=== PATIENT | male | born 1980 | race Caucasian/White ===

== ENCOUNTER 2020-12-07 11:46 | Emergency (ER) | payer BC ==
[2020-12-07 12:19] VITALS: RESP 18
--- NOTE | 2020-12-07 12:55 | ED ---
General Adult HPI - General Chief complaint: Recheck/Abnormal Lab/Rx Stated complaint: Abnormal labs Time Seen by Provider: 12/07/20 12:30 Source: patient, family, RN notes reviewed Mode of arrival: ambulatory Limitations: no limitations - History of Present Illness Initial comments: Patient is a pleasant 40-year-old male presenting to the emergency department for abnormal labs. Patient does have history of high cholesterol. Patient was having his labs rechecked yesterday. Patient was told his hemoglobin level was high and to come to the emergency department. Patient has been having some mild palpitations however does have history of anxiety. Patient did recently have his medical level increased. Otherwise patient is symptom-free. No history of similar symptoms previously. Patient states he does have annual physicals and blood draws without history of similar problem reported to him. - Related Data Home Medications Medication Instructions Recorded Confirmed Cyclobenzaprine [Flexeril] 10 mg PO BID PRN 12/07/20 12/07/20 Diclofenac Sodium Gel [Voltaren 2 gm TOPICAL QID PRN 12/07/20 12/07/20 Gel] Doxycycline Hyclate 100 mg PO BID 12/07/20 12/07/20 Fenofibrate 54 mg PO DAILY 12/07/20 12/07/20 buPROPion HCL [Wellbutrin XL] 300 mg PO DAILY 12/07/20 12/07/20 buPROPion XL [Wellbutrin XL] 150 mg PO DAILY 12/07/20 12/07/20 lamoTRIgine [LaMICtal] 100 mg PO BID 12/07/20 12/07/20 Allergies Allergy/AdvReac Type Severity Reaction Status Date / Time ampicillin Allergy Unknown Verified 12/07/20 14:03 Review of Systems ROS Statement: Those systems with pertinent positive or pertinent negative responses have been documented in the HPI. ROS Other: All systems not noted in ROS Statement are negative. Constitutional: Denies: fever Eyes: Denies: eye pain ENT: Denies: ear pain Respiratory: Denies: cough Cardiovascular: Reports: palpitations. Denies: chest pain Endocrine: Denies: fatigue Gastrointestinal: Denies: abdominal pain Genitourinary: Denies: dysuria Musculoskeletal: Denies: back pain Skin: Denies: rash Neurological: Denies: weakness Past Medical History Past Medical History: Hyperlipidemia History of Any Multi-Drug Resistant Organisms: None Reported Past Surgical History: Orthopedic Surgery Additional Past Surgical History / Comment(s): bilateral shoulder surgery Past Psychological History: Anxiety, Bipolar, Depression, Panic Disorder Smoking Status: Never smoker Past Alcohol Use History: Occasional Past Drug Use History: None Reported General Exam Limitations: no limitations General appearance: alert, in no apparent distress Head exam: Present: normocephalic Eye exam: Present: normal appearance Neck exam: Present: normal inspection Respiratory exam: Present: normal lung sounds bilaterally Cardiovascular Exam: Present: regular rate, normal rhythm, normal heart sounds GI/Abdominal exam: Present: soft. Absent: tenderness Extremities exam: Present: normal inspection. Absent: pedal edema, calf tenderness Neurological exam: Present: alert Psychiatric exam: Present: normal affect, normal mood Skin exam: Present: normal color. Absent: rash Course Vital Signs 12/07/20 12:12 Temperature 98.6 F Pulse Rate 107 H Respiratory 18 Rate Blood Pressure 154/104 O2 Sat by Pulse 98 Oximetry EKG Findings - EKG Comments: EKG Findings:: No sinus rhythm with a rate of 89. OH 142. QRS 98. QT 366. QTc 445. Normal axis. Normal QRS. No acute ST change. Medical Decision Making - Medical Decision Making Patient reevaluated and resting comfortably in bed, remains symptom-free. Patient and family updated on results and need for follow-up. Lab abnormality concern that brought patient to the hospital is not found - Lab Data Result diagrams: 12/07/20 13:26 12/07/20 13:26 Lab Results 12/07/20 12/07/20 12/07/20 Range/Units 13:26 13:26 13:26 WBC 6.1 (3.8-10.6) k/uL RBC 4.54 (4.30-5.90) m/uL Hgb 14.8 (13.0-17.5) gm/dL Hct 39.6 (39.0-53.0) % MCV 87.3 (80.0-100.0) fL MCH 32.7 (25.0-35.0) pg MCHC 37.4 H (31.0-37.0) g/dL RDW 12.2 (11.5-15.5) % Plt Count 221 (150-450) k/uL MPV 6.3 Neutrophils % 83 % Lymphocytes % 10 % Monocytes % 4 % Eosinophils % 1 % Basophils % 0 % Neutrophils # 5.1 (1.3-7.7) k/uL Lymphocytes # 0.6 L (1.0-4.8) k/uL Monocytes # 0.3 (0-1.0) k/uL Eosinophils # 0.1 (0-0.7) k/uL Basophils # 0.0 (0-0.2) k/uL Hyperchromasia Moderate PT 10.7 (9.0-12.0) sec INR 1.0 (<1.2) APTT 24.7 (22.0-30.0) sec Sodium (137-145) mmol/L Potassium (3.5-5.1) mmol/L Chloride (98-107) mmol/L Carbon Dioxide (22-30) mmol/L Anion Gap mmol/L BUN (9-20) mg/dL Creatinine (0.66-1.25) mg/dL Est GFR (CKD-EPI)AfAm (>60 ml/min/1.73 sqM) Est GFR (CKD-EPI)NonAf (>60 ml/min/1.73 sqM) Glucose (74-99) mg/dL Plasma Lactic Acid John (0.7-2.0) mmol/L Calcium (8.4-10.2) mg/dL Magnesium (1.6-2.3) mg/dL Total Bilirubin (0.2-1.3) mg/dL AST (17-59) U/L ALT (4-49) U/L Alkaline Phosphatase (38-126) U/L Troponin I (0.000-0.034) ng/mL Total Protein (6.3-8.2) g/dL Albumin (3.5-5.0) g/dL TSH (0.465-4.680) mIU/L Free T4 (0.78-2.19) ng/dL Free T3 pg/mL (2.8-5.3) pg/ml Urine Color Yellow Urine Appearance Clear (Clear) Urine pH 6.0 (5.0-8.0) Ur Specific [facility] 1.027 (1.001-1.035) Urine Protein Negative (Negative) Urine Glucose (UA) Negative (Negative) Urine Ketones Negative (Negative) Urine Blood Negative (Negative) Urine Nitrite Negative (Negative) Urine Bilirubin Negative (Negative) Urine Urobilinogen 2.0 (<2.0) mg/dL Ur Leukocyte Esterase Negative (Negative) Valproic Acid ug/mL 12/07/20 12/07/20 12/07/20 Range/Units 13:26 13:26 13:26 WBC (3.8-10.6) k/uL RBC (4.30-5.90) m/uL Hgb (13.0-17.5) gm/dL Hct (39.0-53.0) % MCV (80.0-100.0) fL MCH (25.0-35.0) pg MCHC (31.0-37.0) g/dL RDW (11.5-15.5) % Plt Count (150-450) k/uL MPV Neutrophils % % Lymphocytes % % Monocytes % % Eosinophils % % Basophils % % Neutrophils # (1.3-7.7) k/uL Lymphocytes # (1.0-4.8) k/uL Monocytes # (0-1.0) k/uL Eosinophils # (0-0.7) k/uL Basophils # (0-0.2) k/uL Hyperchromasia PT (9.0-12.0) sec INR (<1.2) APTT (22.0-30.0) sec Sodium 136 L (137-145) mmol/L Potassium 4.1 (3.5-5.1) mmol/L Chloride 106 (98-107) mmol/L Carbon Dioxide 24 (22-30) mmol/L Anion Gap 6 mmol/L BUN 16 (9-20) mg/dL Creatinine 0.91 (0.66-1.25) mg/dL Est GFR (CKD-EPI)AfAm >90 (>60 ml/min/1.73 sqM) Est GFR (CKD-EPI)NonAf >90 (>60 ml/min/1.73 sqM) Glucose 132 H (74-99) mg/dL Plasma Lactic Acid John 0.8 (0.7-2.0) mmol/L Calcium 9.3 (8.4-10.2) mg/dL Magnesium 2.4 H (1.6-2.3) mg/dL Total Bilirubin 0.5 (0.2-1.3) mg/dL AST 25 (17-59) U/L ALT 28 (4-49) U/L Alkaline Phosphatase 72 (38-126) U/L Troponin I <0.012 (0.000-0.034) ng/mL Total Protein 6.7 (6.3-8.2) g/dL Albumin 4.3 (3.5-5.0) g/dL TSH 0.615 (0.465-4.680) mIU/L Free T4 0.97 (0.78-2.19) ng/dL Free T3 pg/mL 4.3 (2.8-5.3) pg/ml Urine Color Urine Appearance (Clear) Urine pH (5.0-8.0) Ur Specific [facility] (1.001-1.035) Urine Protein (Negative) Urine Glucose (UA) (Negative) Urine Ketones (Negative) Urine Blood (Negative) Urine Nitrite (Negative) Urine Bilirubin (Negative) Urine Urobilinogen (<2.0) mg/dL Ur Leukocyte Esterase (Negative) Valproic Acid <10.0 ug/mL - Radiology Data Radiology results: image reviewed (Chest x-ray shows no acute process) Disposition Clinical Impression: Palpitations Disposition: HOME SELF-CARE Condition: Stable Instructions (If sedation given, give patient instructions): Heart Palpitations (ED) Additional Instructions: Please do follow-up with your primary care physician in the next day or 2 for recheck. Have primary care physician consider rechecking labs again if they feel necessary. If heart palpitations/racing heart rate continues consider further evaluation with this including monitor cardiac evaluation. Return for increased heart rate, chest pain or difficulty breathing, worsening or changing symptoms or other concerns. Is patient prescribed a controlled substance at d/c from ED?: No Referrals: Brittani Thompson NPC [Family Provider] - 1-2 days Time of Disposition: 15:17
[2020-12-07 14:07] LABS: Appearance,Urine Clear (Clear); Bilirubin,Urine Negative (Negative); Blood,Urine Negative (Negative); Color,Urine Yellow; Glucose,Urine (UA) Negative (Negative); Ketones,Urine Negative (Negative); Leukocyte Esterase,Urine Negative (Negative); Nitrite,Urine Negative (Negative); Protein,Urine Negative (Negative); Specific Gravity,Urine 1.027 (1.001-1.035)
[2020-12-07 14:11] LABS: Basophils % (A) 0 %; Eosinophils # (A) 0.1 k/uL (0-0.7); Eosinophils % (A) 1 %; HCT 39.6 % (39.0-53.0); HGB 14.8 gm/dL (13.0-17.5); Hyperchromasia Moderate; Lymphocytes # (A) 0.6 k/uL (1.0-4.8); Lymphocytes % (A) 10 %; MCH 32.7 pg (25.0-35.0); MCHC 37.4 g/dL (31.0-37.0); MCV 87.3 fL (80.0-100.0); Mean Platelet Volume 6.3; Monocytes # (A) 0.3 k/uL (0-1.0); Monocytes % (A) 4 %; Neutrophils # (A) 5.1 k/uL (1.3-7.7); Neutrophils % (A) 83 %; Platelet Count 221 k/uL (150-450); RBC 4.54 m/uL (4.30-5.90); RDW 12.2 % (11.5-15.5); WBC 6.1 k/uL (3.8-10.6)
[2020-12-07 14:18] LABS: Partial Thromboplastin Time 24.7 sec (22.0-30.0); Prothrombin Time 10.7 sec (9.0-12.0)
[2020-12-07 14:21] LABS: ALT 28 U/L (4-49); AST 25 U/L (17-59); African American GFR (CKD) >90 (>60 ml/min/1.73 sqM); Albumin 4.3 g/dL (3.5-5.0); Alkaline Phosphatase 72 U/L (38-126); Anion Gap 6 mmol/L; Blood Urea Nitrogen 16 mg/dL (9-20); Calcium 9.3 mg/dL (8.4-10.2); Carbon Dioxide 24 mmol/L (22-30); Chloride 106 mmol/L (98-107); Glucose 132 mg/dL (74-99); Magnesium 2.4 mg/dL (1.6-2.3); Non-African American GFR(CKD) >90 (>60 ml/min/1.73 sqM); Potassium 4.1 mmol/L (3.5-5.1); Sodium 136 mmol/L (137-145); Total Bilirubin 0.5 mg/dL (0.2-1.3); Total Protein 6.7 g/dL (6.3-8.2)
[2020-12-07 14:26] LABS: Valproic Acid (Depakene) <10.0 ug/mL
[2020-12-07 14:37] LABS: T4, Free (Free Thyroxine) 0.97 ng/dL (0.78-2.19)
--- NOTE | 2020-12-07 14:38 | XR ---
EXAMINATION TYPE: XR chest 2V DATE OF EXAM: 12/07/2020 COMPARISON: None HISTORY: 40-year-old male with weakness TECHNIQUE: PA and lateral views FINDINGS: The cardiomediastinal silhouette, aorta, and pulmonary vasculature are within normal limits. Lungs an d pleural spaces are clear. IMPRESSION: No acute cardiopulmonary process.
[2020-12-07 15:48] VITALS: BP 140/82; PULSE 88; TEMP 98.4
== END 2020-12-07 15:35 | disposition home or self-care (01) ==
LOC: EC 11:46
DX: R00.2 Palpitations (principal); E78.5 Hyperlipidemia, unspecified; F41.9 Anxiety disorder, unspecified; F31.9 Bipolar disorder, unspecified; E78.00 Pure hypercholesterolemia, unspecified
CPT/HCPCS: 36415; 71046; 80053; 80164; 81003; 83605; 83735; 84439; 84443; 84481; 84484; 85025; 85610; 85730; 93005; 99285

== ENCOUNTER → 2022-07-15 | Outpatient (CLI) | payer BC ==
--- NOTE | 2022-07-15 17:30 | P.SLEEP ---
History of Present Illness H&P Date: 07/15/22 This is a 41-year-old male patient referred to me for sleep apnea evaluation. The patient employed by [employer] and he works at their central offices. He has been having issues with snoring and chronic hypersomnia and sleepiness. He has also excessive fatigue. His current Fortine score is currently at 2. He goes to bed around 1 PM and awakes at 9 AM in the morning. He is a mouth breather and he has been waking up with a dry mouth in the morning. He feels tired during the day. He is having some difficulties with concentration. No issues with memory. He has also gained weight in the order of 30 pounds over the past one year. The patient has other comorbid conditions including chronic anxiety and depression. The patient has hypertension and hyperlipidemia. He utilizes medical marijuana. No history of alcoholism. No history of substance abuse. He drinks over excess amount of beers over the weekend. His face on his side and he is a mouth breather. He is currently losing weight. The patient is undergoing medical treatment for weight loss. He is on a combination of Prozac and Abilify was chronic anxiety and depression. Review of Systems Constitutional: Reports fatigue, Reports weakness, Reports weight gain Eyes: denies as per HPI, denies blurred vision, denies bulging eye, denies decreased vision, denies diplopia, denies discharge, denies dry eye, denies irritation, denies itching, denies pain, denies photophobia, denies loss of peripheral vision, denies loss of vision, denies tunnel vision/blind spots Ears: deny: decreased hearing, ear discharge, earache, tinnitus Ears, nose, mouth and throat: Reports as per HPI Breasts: absent: as per HPI, gynecomastia Cardiovascular: Reports as per HPI Respiratory: Reports as per HPI Gastrointestinal: Reports as per HPI Genitourinary: Reports as per HPI Musculoskeletal: Reports as per HPI Musculoskeletal: absent: ankle pain, ankle stiffness, ankle swelling Neurological: Reports as per HPI Psychiatric: Reports as per HPI Endocrine: Reports as per HPI Hematologic/Lymphatic: Reports as per HPI Allergic/Immunologic: Reports as per HPI Past Medical History Past Medical History: Hyperlipidemia, Hypertension History of Any Multi-Drug Resistant Organisms: None Reported Past Surgical History: Orthopedic Surgery Additional Past Surgical History / Comment(s): bilateral shoulder surgery Past Psychological History: Anxiety, Bipolar, Depression, Panic Disorder Smoking Status: Never smoker Past Alcohol Use History: Occasional Past Drug Use History: None Reported Medications and Allergies Home Medications Medication Instructions Recorded Confirmed Type Cyclobenzaprine [Flexeril] 10 mg PO BID PRN 12/07/20 12/07/20 History Diclofenac Sodium Gel [Voltaren 2 gm TOPICAL QID PRN 12/07/20 12/07/20 History Gel] Doxycycline Hyclate 100 mg PO BID 12/07/20 12/07/20 History Fenofibrate 54 mg PO DAILY 12/07/20 12/07/20 History buPROPion HCL [Wellbutrin XL] 300 mg PO DAILY 12/07/20 12/07/20 History buPROPion XL [Wellbutrin XL] 150 mg PO DAILY 12/07/20 12/07/20 History lamoTRIgine [LaMICtal] 100 mg PO BID 12/07/20 12/07/20 History Allergies Allergy/AdvReac Type Severity Reaction Status Date / Time ampicillin Allergy Unknown Verified 12/07/20 14:03 Physical Exam BP is 150/92 with a pulse of 68 and the respiration of 12 and a temperature 98.4 with a saturation of 99% on room air oxygen. Weight is 217. Fortine score is at 2. The size of the neck is 17 inches. Body mass index is 32. The patient appeared well nourished and normally developed. Vital signs as documented. Head exam is unremarkable. No scleral icterus or corneal arcus noted. Neck is without jugular venous distension, thyromegaly, or carotid bruits. The patient is a Mallampati class IV with significant crowding of the posterior oropharynx. Carotid upstrokes are brisk bilaterally. Lungs are clear to auscultation and percussion. Cardiac exam reveals the PMI to be normally sized and situated. Rhythm is regular. First and second heart sounds normal. No murmurs, rubs or gallops. Abdominal exam reveals normal bowel sounds, no masses, no organomegaly and no aortic enlargement. Extremities are nonedematous and both femoral and pedal pulses are normal. Examination of the skin revealed no evidence of significant rashes, suspicious appearing nevi or other concerning le sions.Neurologically, the patient is awake and alert and the patient does not have any focal neurological deficit. Cranial nerves are essentially intact. Assessment and Plan Plan: Chronic fatigue and hypersomnia, consider possibility of obstructive sleep apnea. Snoring Obesity with a BMI of 32 Hypertension, Hyperlipidemia Chronic anxiety/depression Plan Proceed with screening polysomnography/home sleep study to evaluate this patient for obstructive sleep apnea. Weight loss Implement good sleep hygiene measures We'll continue to follow, and we'll make further recommendations based on the results of the sleep study. Sleep Note - Sleep Note Sleep Note: Temperature: Pulse Rate: Respiratory Rate: Blood Pressure: SpO2: Height: Weight: BMI: Neck Circumference:
== END ==
LOC: 3 N SLEEP 13:32
PROVIDERS: ATTEND Internal Medicine Critical Care Medicine
DX: G47.33 Obstructive sleep apnea (adult) (pediatric) (principal); I10 Essential (primary) hypertension; E78.5 Hyperlipidemia, unspecified; F41.9 Anxiety disorder, unspecified; E66.9 Obesity, unspecified; R53.82 Chronic fatigue, unspecified; R06.83 Snoring; F31.9 Bipolar disorder, unspecified; Z88.1 Allergy status to other antibiotic agents; Z68.32 Body mass index [BMI] 32.0-32.9, adult
CPT/HCPCS: 99211

== ENCOUNTER → 2022-12-09 | Outpatient (CLI) | payer BC ==
--- NOTE | 2022-12-09 14:00 | P.PN ---
Progress Note - Text Progress Note Date: 12/09/22 42-year-old male patient diagnosed having mild obstructive sleep apnea and the patient is coming in for a compliancy check. The patient underwent a sleep study and the patient was found to have mild TYLER with an AHI of 10. The patient has chronic hypersomnia and sleepiness. The patient accordingly was started on APAP therapy. The patient is currently working conditions. Is going to bed at around 10 PM and his waken up 7 AM in the morning. He is wearing his CPAP machine every night. Based on the compliance data collected on the machine, the patient has utilizes machine 80% of the time over the past 30 days and he has achieved more than 4 hours of usage 70% of the time. His been averaging about 5 hours and 50 minutes of CPAP use per night. He is currently on APAP mode pressures of 5/15 cm of water. Average pressure delivered by the machine or the P 95th percentile pressure is at 13.0. The patient has no Michele. leaks and the leak is in order of 10 L/m. AHI is down to 1.7. The patient is using the air fit F30 all facemask medium size. He is doing well. Strength lose weight. His current Talihina score is down to 8. His level of alertness is improved and the patient seems to be committed to long-term CPAP therapy. No complications or any side effects related to CPAP therapy. No headaches. No tiredness or sleepiness. Snoring is completely subsided BP is 131/66 with a pulse of 79 and a respiration of 16 and the weight is 226 pounds and the pulse ox is 98% on room air oxygen The patient appeared well nourished and normally developed. Vital signs as documented. Head exam is unremarkable. No scleral icterus or corneal arcus noted. Neck is without jugular venous distension, thyromegaly, or carotid bruits. Carotid upstrokes are brisk bilaterally. Lungs are clear to auscultation and percussion. Cardiac exam reveals the PMI to be normally sized and situated. Rhythm is regular. First and second heart sounds normal. No murmurs, rubs or gallops. Abdominal exam reveals normal bowel sounds, no masses, no organomegaly and no aortic enlargement. Extremities are nonedematous and both femoral and pedal pulses are normal.Examination of the skin revealed no evidence of significant rashes, suspicious appearing nevi or other concerning lesions.N eurologically, the patient is awake and alert and the patient does not have any focal neurological deficit. Cranial nerves are essentially intact. Assessment Symptomatic obstructive sleep apnea mild with an AHI of 10. The patient is currently undergoing successful APAP therapy with a pressures of 5/15 cm of water. Plan Continue weight loss Maintain good sleep hygiene measures Continue CPAP therapy the patient is compliant and the patient meets insurance standards for compliancy No need for any further adjustments keep the APAP mode Keep same mask interface Activate EPR and sedated level of 3, humidity level is at 4 and the temperature of the tube is at 65F. See me back in one year
== END ==
LOC: 3 N SLEEP 13:05
PROVIDERS: ATTEND Internal Medicine Critical Care Medicine
DX: G47.33 Obstructive sleep apnea (adult) (pediatric) (principal); Z99.89 Dependence on other enabling machines and devices; Z88.1 Allergy status to other antibiotic agents
CPT/HCPCS: 99212

== ENCOUNTER 2023-12-27 18:15 | Emergency (ER) | payer BC ==
[2023-12-27 18:26] VITALS: TEMP 98.7
[2023-12-27] MEDS: LIDOCAINE 1% INJ 10MG/ML (20 ML MDV) SQ ONE (18:59)
--- NOTE | 2023-12-27 19:02 | ED ---
General Adult HPI - General Chief complaint: Fall Stated complaint: Fall/passed out for 20secs Time Seen by Provider: 12/27/23 18:29 Source: patient, RN notes reviewed, old records reviewed Mode of arrival: ambulatory Limitations: no limitations - History of Present Illness Initial comments: 43-year-old male presenting status post trip and fall with head injury and loss of consciousness. Patient tripped on a child's toy falling face forward with lower lip laceration. He was unconscious after the fall. He complains of pain at the site of injury no other injuries reported. No anticoagulation. - Related Data Home Medications Medication Instructions Recorded Confirmed Cyclobenzaprine [Flexeril] 10 mg PO BID PRN 12/07/20 12/07/20 Diclofenac Sodium Gel [Voltaren 2 gm TOPICAL QID PRN 12/07/20 12/07/20 Gel] Doxycycline Hyclate 100 mg PO BID 12/07/20 12/07/20 Fenofibrate 54 mg PO DAILY 12/07/20 12/07/20 buPROPion HCL [Wellbutrin XL] 300 mg PO DAILY 12/07/20 12/07/20 buPROPion XL [Wellbutrin XL] 150 mg PO DAILY 12/07/20 12/07/20 lamoTRIgine [LaMICtal] 100 mg PO BID 12/07/20 12/07/20 Allergies Allergy/AdvReac Type Severity Reaction Status Date / Time ampicillin Allergy Unknown Verified 12/27/23 18:26 Review of Systems ROS Statement: Those systems with pertinent positive or pertinent negative responses have been documented in the HPI. ROS Other: All systems not noted in ROS Statement are negative. Past Medical History Past Medical History: Hyperlipidemia, Hypertension History of Any Multi-Drug Resistant Organisms: None Reported Past Surgical History: Orthopedic Surgery Additional Past Surgical History / Comment(s): bilateral shoulder surgery Past Psychological History: Anxiety, Bipolar, Depression, Panic Disorder Smoking Status: Never smoker Past Alcohol Use History: Occasional Past Drug Use History: None Reported General Exam Limitations: no limitations General appearance: alert, in no apparent distress Head exam: Present: other (Left periorbital ecchymosis, lower lip laceration x 2) ENT exam: Present: other (Two 1 cm lacerations on the lower lip) Neck exam: Present: normal inspection. Absent: tenderness, meningismus Respiratory exam: Present: normal lung sounds bilaterally. Absent: respiratory distress Cardiovascular Exam: Present: regular rate, normal rhythm GI/Abdominal exam: Present: soft. Absent: distended, tenderness, guarding Extremities exam: Present: normal inspection, normal capillary refill Neurological exam: Present: alert, oriented X3 Psychiatric exam: Present: normal affect, normal mood Skin exam: Present: warm Course Vital Signs 12/27/23 18:21 Temperature 98.7 F Pulse Rate 103 H Respiratory 20 Rate Blood Pressure 148/88 O2 Sat by Pulse 98 Oximetry Procedures - Laceration Laceration #1 Consent Obtained: verbal consent Indication: laceration Site: lip Size (cm): 3 Description: stellate, irregular Anesthetic Used: lidocaine 1% Anesthesia Technique: local infiltration Amount (mls): 3 Pre-repair: wound explored Type of Sutures: vicryl Size of Sutures: 5-0 Number of Sutures: 4 Technique: simple, interrupted Patient Tolerated Procedure: well Medical Decision Making - Medical Decision Making Was pt. sent in by a medical professional or institution (, PA, COMMERCIAL LINES MANAGER, urgent care, hospital, or fpc...) When possible be specific @ -No Did you speak to anyone other than the patient for history (EMS, parent, family, police, friend...)? What history was obtained from this source @ -No Did you review nursing and triage notes (agree or disagree)? Why? @ -I reviewed and agree with nursing and triage notes Were old charts reviewed (outside hosp., previous admission, EMS record, old EKG, old radiological studies, urgent care reports/EKG's, fpc records)? Report findings @ -No old charts were reviewed Differential Diagnosis medic injury from fall, lip laceration, dental injury, intracranial hemorrhage or goal injury EKG interpreted by me (3pts min.). @ -As above X-rays interpreted by me (1pt min.). @ -None done CT interpreted by me (1pt min.). @ -None done U/S interpreted by me (1pt. min.). @ -None done What testing was considered but not performed or refused? (CT, X-rays, U/S, labs)? Why? @ -None What meds were considered but not given or refused? Why? @ -None Did you discuss the management of the patient with other professionals (professionals i.e. , PA, COMMERCIAL LINES MANAGER, lab, RT, psych nurse, group social worker, certified breastfeeding educator, teacher, correctional officer, keycase assembler)? Give summary @ -No Was smoking cessation discussed for >3mins.? @ -No Was critical care preformed (if so, how long)? @ -No Were there social determinants of health that impacted care today? How? (Homelessness, low income, unemployed, alcoholism, drug addiction, transportation, low edu. Level, literacy, decrease access to med. care, skilled nursing, rehab)? @ -No Was there de-escalation of care discussed even if they declined (Discuss DNR or withdrawal of care, Hospice)? DNR status @ -No What co-morbidities impacted this encounter? (DM, HTN, Smoking, COPD, CAD, Cancer, CVA, ARF, Chemo, Hep., AIDS, mental health diagnosis, sleep apnea, morbid obesity)? @ -None Was patient admitted / discharged? Hospital course, mention meds given and route, prescriptions, significant lab abnormalities, going to OR and other pertinent info. @ -43-year-old male with mechanical fall, head injury, loss conscious. Head CT is negative. Patient had a stellate lip laceration which did not involve the vermilion border. This was repaired in the emergency department. Patient stable for discharge. Undiagnosed new problem with uncertain prognosis? @ -No Drug Therapy requiring intensive monitoring for toxicity (Heparin, Nitro, Insulin, Cardizem)? @ -No Were any procedures done? @ -Yes, laceration repair Diagnosis/symptom? @ -Concussion, lip laceration Acute, or Chronic, or Acute on Chronic? @ -Acute Uncomplicated (without systemic symptoms) or Complicated (systemic symptoms)? @ -Default Side effects of treatment? @ -No Exacerbation, Progression, or Severe Exacerbation? @ -No Poses a threat to life or bodily function? How? (Chest pain, [place], CA, pneumonia, PE, COPD, DKA, ARF, appy, cholecystitis, CVA, Diverticulitis, Homicidal, Suicidal, threat to staff... and all critical care pts) @ -No Disposition Clinical Impression: Fall, Concussion, Lip laceration Disposition: HOME SELF-CARE Condition: Good Instructions (If sedation given, give patient instructions): Concussion (ED), Laceration (ED), Care For Your Absorbable Stitches (ED) Is patient prescribed a controlled substance at d/c from ED?: No Referrals: Blayne Schrader DO [Primary Care Provider] - 1-2 days Time of Disposition: 19:34
--- NOTE | 2023-12-27 19:17 | CT ---
EXAMINATION TYPE: CT brain bobine wo con DATE OF EXAM: 12/27/2023 6:55 PM COMPARISON: None. CLINICAL INDICATION: Male, 43 years old with history of head injury +LOC/pain, Fall, +LOC TECHNIQUE: CT of the brain is performed utilizing 3 mm thick sections through the posterior fossa and 3 mm thick sections through the remaining calvarium. Study is performed within 24 hours of arrival to the hospital. Contrast used: mL of , (none if empty) CT DLP: 1655.9 mGycm, Automated exposure control for dose reduction was used. FINDINGS: No abnormal hyperdensity is present to suggest an acute intracranial hemorrhage. No mass lesion is evident. No acute infarcts are evident. Ventricles and sulci are appropriate for the patient age. Because the thickening extends through the bilateral maxillary sinuses through ethmoid air cells. Air -fluid levels within the left maxillary sinus IMPRESSIONS: 1. No acute intracranial process. Follow-up MRI can be performed as clinically indicated. CT cervical spine. COMPARISON: None TECHNIQUE: CT of the cervical spine is performed in the axial plane at 2 mm thick sections. Reconstr ucted images in the coronal, and sagittal plane are reviewed on the computer. FINDINGS: No acute fractures are evident. Vertebral body alignment is normal. Disc heights are preserved. Vertebral body heights are preserved. No spinal canal stenosis is evident. No neural foraminal stenosis is evident. IMPRESSION: 1. No acute osseous abnormality cervical spine [facility], , 12/27/2023 7:15 PM
[2023-12-27 19:44] VITALS: BP 110/70; PULSE 91; RESP 16
== END 2023-12-27 19:39 | disposition home or self-care (01) ==
LOC: EC 18:15
DX: S06.0XAA Concussion with loss of consciousness status unknown, initial encounter (principal); S01.511A Laceration without foreign body of lip, initial encounter; Z88.0 Allergy status to penicillin; W01.0XXA Fall on same level from slipping, tripping and stumbling without subsequent striking against object, initial encounter
CPT/HCPCS: 72125; 70450; 99283; 12013; J2003